=== PATIENT | female | born 1970 | race Caucasian/White ===

== ENCOUNTER 2023-04-23 13:49 | Outpatient (REF) | payer MEDICAID, SELFPAY | END 2023-04-23 13:50 | disposition home or self-care (01) | LOC: HO.HOSX 13:49 | PROVIDERS: Visit Provider Physician Assistant | DX: Z13.89 Encounter for screening for other disorder (principal) ==

== ENCOUNTER → 2023-04-24 10:30 | Outpatient (BNVA) | payer OTHER, SELFPAY | PROVIDERS: Visit Provider Physician Assistant ==

== ENCOUNTER 2023-05-01 14:06 | Outpatient (AMB) | payer MEDICAID, SELFPAY ==
--- NOTE | 2023-05-01 14:13 | A.OFFVIS_ITS ---
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 States pain is mainly on her ulnar aspect of hand and around her wrist which started after 02/10/23 after falling down at home. States she has pain and has worsen since. States she put her hands out to break fall. Reports numbness& tingling as well. Patient told me she is not feeling well and wanted her B/P checked. Blood pressure is currently 167/92. Hx of DM and HBP. 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 She currently states she has worsening pain at the ulnar aspect of her hand and around her wrist. She also c/o numbness and tingling in her hand which is aggravated in the mornings and at night. She has a history of diabetes and hypertension. Her BP is currently 167/92. She had a CTR in the past however the symptoms recurred after some days of surgery. [facility] Medical History (Updated 05/02/23 @ 08:36 by Kyler Zheng PA-C) delivery delivered Surgical History (Updated 05/01/23 @ 14:24 by FLORENCIA Sánchez) Status post surgical removal of malignant neoplasm of skin Hx of breast reduction, elective History of back surgery Social History (Updated 05/01/23 @ 14:22 by FLORENCIA Sánchez) Current occupational status: disabled Current occupation: rt hand Review of Systems Const All systems reviewed & are unremarkable except as noted in HPI and below Physical Exam Vital Signs: Last Vital Signs BP 167/92 H 05/01/23 14:21 BMI result Body Mass Index 36.0 Const General: cooperative, healthy appearing, comfortable, no acute distress, well developed and alert Orientation/consciousness: patient oriented x3 HEENT Head: Yes normal to inspection, Yes normocephalic and Yes atraumatic Eyes General: appearance normal, both eyes and all related structures Resp Effort & Inspection: normal respiratory effort and able to speak in complete sentences Cardio Rate: regular rate Peripheral pulses: Peripheral pulses 2+ throughout GI Palpation (GI): Soft to palpation Skin Lesions: no lesions Rashes: no rashes Neuro General: patient oriented x3 Extrem Other: Right thumb: Pain at the base of the thumb along the CMC joint. Pain along the TFCC and pain with compression test of the wrist. they are able to make a full fist and fully extend. NVI. Results Reviewed Results Reviewed: X-rays of the right wrist obtained in the office today are negative for any acute or chronic abnormalities. Assessment & Plan Assessment & Plan (1) TFCC (triangular fibrocartilage complex) injury: Code(s): S69.80XA - Other specified injuries of unspecified wrist, hand and finger(s), initial encounter Qualifiers: Encounter type: initial encounter Laterality: right Qualified Code(s): S69.81XA - Other specified injuries of right wrist, hand and finger(s), initial encounter Plan She was given a Velcro wrist splint which she will use with activities and with sleeping to allow proper rest. An MRI of the right wrist has been ordered to further evaluate the ligament / cartilaginous structures. She will see us back once the scan is complete to see Dr. Beasley for a follow-up examination. Orders: Orders XR hand RT min 3V 05/01/23 M79.641 - Pain in right hand MR wrist RT w con 05/01/23 S69.80XA - Other specified injuries of unspecified wrist, hand and finger(s), initial encounter Patient Instructions: Scribed for Kyler Zheng PA-C, by Milton Jamil spanish medical interpreter, on 05/01/2023 at 2:30 PM EST. I, Kyler Zheng PA-C, have personally reviewed and agree with the information entered by the scribe. Coding Level of Care Code New Pt Level 3 (78155) Diagnoses Injury of triangular fibrocartilage complex (TFCC) of right wrist, initial encounter S69.81XA Encounter type: initial encounter Laterality: right
[2023-05-01 14:21] VITALS: BP 167/92; BMI 36.0
== END 2023-05-01 15:21 | disposition home or self-care (01) ==
PROVIDERS: Visit Provider Physician Assistant
DX: S69.81XA Other specified injuries of right wrist, hand and finger(s), initial encounter (principal)
CPT/HCPCS: 99203

== ENCOUNTER 2023-05-01 14:34 | Outpatient (REF) | payer MEDICAID, SELFPAY ==
--- NOTE | ~2023-05-01 | XR_ITS ---
EXAMINATION: XR HAND, RIGHT CLINICAL INFORMATION: Right hand pain COMPARISON: None TECHNIQUE: PA, lateral, and oblique views of the right hand. FINDINGS: The bones and soft tissues are normal. No fracture. Alignment is anatomic. Joint spaces are maintained. No erosions or soft tissue calcifications. XR/XR hand RT min 3V IMPRESSION: Normal right hand.
== END 2023-05-01 14:35 | disposition home or self-care (01) ==
LOC: HO.HOSX 14:34
PROVIDERS: Visit Provider Physician Assistant
DX: M79.641 Pain in right hand (principal); S69.81XA Other specified injuries of right wrist, hand and finger(s), initial encounter; W18.30XA Fall on same level, unspecified, initial encounter; Y93.9 Activity, unspecified; Y92.009 Unspecified place in unspecified non-institutional (private) residence as the place of occurrence of the external cause; Y99.9 Unspecified external cause status
CPT/HCPCS: 73130; 99202

== ENCOUNTER 2023-08-26 12:25 | Outpatient (REF) | payer MEDICAID, SELFPAY | END 2023-08-26 12:26 | disposition home or self-care (01) | LOC: HO.XRAY 12:25 | PROVIDERS: Visit Provider Physician Assistant | DX: Z13.89 Encounter for screening for other disorder (principal) ==